=== PATIENT | female | born 1985 | race Two or more races ===

== ENCOUNTER 2021-09-09 03:59 | Day surgery (SDC) | payer OTHER ==
[2021-09-07 14:12] VITALS: BMI 25.2
[2021-09-09] MEDS ORDERED: PROPOFOL 40 ML ONE (12:41)
[2021-09-09] MEDS ORDERED: MIDAZOLAM HCL 2 MG/2 ML SINGLE DOSE VIAL ONE (12:41)
[2021-09-09] MEDS ORDERED: ONDANSETRON 4 MG/2 ML VIAL ONE (12:41)
[2021-09-09] MEDS ORDERED: DEXAMETHASONE SOD PHOSPHATE 4 MG/1 ML VIAL ONE (12:41)
[2021-09-09] MEDS ORDERED: ceFAZolin SODIUM 1 GM VIAL ONE (13:30)
[2021-09-09] MEDS ORDERED: ceFAZolin SODIUM 1 GM VIAL IVPB ONE (13:30)
[2021-09-09] MEDS ORDERED: ESMOLOL HCL 100,000 MCG/10 ML VIAL ONE (13:50)
[2021-09-09 15:47] VITALS: RESP 20; TEMP 97.8
[2021-09-09 17:36] VITALS: BP 106/60; PULSE 56
== END 2021-09-09 17:56 | disposition home or self-care (01) ==
LOC: JASU-SURG 03:59
PROVIDERS: ATTEND Obstetrics & Gynecology
PROC: 10D17ZZ Extraction of Products of Conception, Retained, Via Natural or Artificial Opening (ICD-10-PCS; principal; 2021-09-09 13:40)
DX: O03.4 Incomplete spontaneous abortion without complication (principal)
CPT/HCPCS: 88305-TC; 94760